=== PATIENT | female | born 1970 | race African-American/Black ===

== ENCOUNTER 2018-07-16 21:53 | Emergency (ER) | payer OTHER, BC ==
[~2018-07-16] VITALS: Ht 165.1 cm; Wt 114.0 kg
[~2018-07-16 21:53] MED LIST: BENTYL10 MG PO; COLACE100 MG PO
[2018-07-17] MEDS ORDERED: SKELAXIN800 MG PO (00:50)
[2018-07-17 01:19] VITALS: BP 121/67
== END 2018-07-17 01:31 | disposition home or self-care (01) ==
LOC: EME 21:53
DX: S16.1XXA Strain of muscle, fascia and tendon at neck level, initial encounter (principal); W01.0XXA Fall on same level from slipping, tripping and stumbling without subsequent striking against object, initial encounter; Y99.0 Civilian activity done for income or pay; Q76.5 Cervical rib
CPT/HCPCS: 72040; 99281; 99283; J1885